=== PATIENT | male | born 1985 | race Caucasian/White ===

== ENCOUNTER 2019-04-05 14:57 | Emergency (ER) | payer OTHER, SELFPAY ==
[2019-04-05 15:12] VITALS: BP 141/88; PULSE 116; RESP 18; TEMP 37.6; O2SAT 98
--- NOTE | 2019-04-05 15:17 | ED.URI ---
HPI - URI/Sore Throat General Chief Complaint: Upper Respiratory Infection Stated Complaint: chills/fever Time Seen by Provider: 04/05/19 15:17 Source: patient and RN notes reviewed History of Present Illness HPI Narrative: Patient is a 33-year-old male that presents the urgent care with complaints of fever, chills, sweats, congestion, cough, fatigue, body aches. Patient states that it started Tuesday afternoon and he has not taken anything for his symptoms. Patient states that all his he is done in sleep. No other acute complaints. No acute distress noted. Patient read the plan of care. Related Data Allergies Allergy/AdvReac Type Severity Reaction Status Date / Time No Known Allergies Allergy Verified 04/05/19 15:16 Review of Systems Review of Systems: Narrative: CONSTITUTIONAL: Reports a fever, chills, fatigue EYES: Denies visual changes, redness, or discharge. ENT: Reports of sinus congestion and sore throat CARDIOVASCULAR: Denies chest pain, palpitations, or edema. RESPIRATORY: Reports of nonproductive cough without dyspnea GASTROINTESTINAL: Denies abdominal pain, nausea, vomiting, or diarrhea. GENITOURINARY: Denies dysuria or hematuria. SKIN: Denies rash or itching. MUSCULOSKELETAL: Denies back pain, joint pain, reports of body aches NEUROLOGIC: Denies headache, numbness, or weakness. All other systems reviewed are negative, except as documented in HPI. PMFSH Comments At the time of my signature, I reviewed and agree with the nursing past medical, surgical, social, and family history. There is no relevant family history pertinent to the patient complaint. Exam Narrative: Exam Narrative: GENERAL: This is a well-nourished, well-developed patient, appears fatigued HEAD: normocephalic, atraumatic. EYES: PERRL. Sclera clear/white. Vision is grossly intact. EARS: External ears normal, auditory canals clear and without drainage, TMs normal without perforation. Hearing grossly intact. NOSE: External nose normal with no obvious nasal discharge, nares without redness, clear rhinorrhea. THROAT: Mucous membranes moist, moderate erythema noted posterior oropharynx with moderate postnasal drainage. NECK: Neck supple, non-tender without lymphadenopathy CARDIOVASCULAR: Regular rate and rhythm without murmurs, gallops, or rubs. RESPIRATORY: Bibasilar expiratory wheezes SKIN: warm, intact with no suspicious lesions or rash, good texture and turgor. NEURO: awake, alert, and oriented to person, place and time. There were no obvious focal neurologic abnormalities. EXTREMITIES: No clubbing, cyanosis, or edema. Course Vital Signs Vital signs: Vital Signs Temperature 99.7 F H 04/05/19 15:12 Pulse Rate 116 H 04/05/19 15:12 Respiratory Rate 18 04/05/19 15:12 Blood Pressure 141/88 H 04/05/19 15:12 Pulse Oximetry 98 04/05/19 15:12 Temperature 99.7 F H 04/05/19 15:12 Pulse Rate 116 H 04/05/19 15:12 Respiratory Rate 18 04/05/19 15:12 Blood Pressure 141/88 H 04/05/19 15:12 Pulse Oximetry 98 04/05/19 15:12 Reviewed?patient is informed that they may have pre-hypertension or hypertension based on a blood pressure reading in the department. I recommend the patient call the primary care provider listed on their discharge instructions or a physician of their choice this week to arrange follow-up for further evaluation of possible pre-hypertension or hypertension. MDM - URI/Sore Throat MDM Narrative Medical decision making narrative: Reviewed lab results with the patient. He is aware that flu swab was negative as well as strep swab. Educated him on culture we will call within 72 hours if culture is positive and antibiotics are necessary. Advised the patient to treat the fevers, body aches as needed with Tylenol/ibuprofen. Increase fluids and rest. Use Claritin and Flonase for postnasal drainage and sinus relief. Complete steroid regimen as prescribed for cough and wheezing. Use inhaler as needed for shortness of breath
== END 2019-04-05 15:42 | disposition home or self-care (01) ==
PROVIDERS: Emergency Provider Nurse Practitioner Family
DX: J40 Bronchitis, not specified as acute or chronic (principal); J06.9 Acute upper respiratory infection, unspecified
CPT/HCPCS: 87081; 87804; 87880; 99203; G0463